=== PATIENT | male | born 1995 | race Caucasian/White ===

== ENCOUNTER 2023-04-29 19:39 | Emergency (ER) | payer OTHER | END 2023-04-29 21:07 | disposition home or self-care (01) | LOC: MW.ED 19:39 | DX: S42.022A Displaced fracture of shaft of left clavicle, initial encounter for closed fracture (principal); V29.99XA Rider (driver) (passenger) of other motorcycle injured in unspecified traffic accident, initial encounter; Y92.410 Unspecified street and highway as the place of occurrence of the external cause | CPT/HCPCS: 73000-26-LT; 73000-LT; 73030-26-LT; 73030-LT; 99283 ==